=== PATIENT | male | born 1995 | race Caucasian/White ===

== ENCOUNTER 2019-01-16 21:18 | Emergency (ER) | payer BC ==
[~2019-01-16] VITALS: Ht 170.2 cm; Wt 70.0 kg
[2019-01-16] MEDS ORDERED: KETOROLAC TROMETHAMINE 60 MG/2 ML VIAL IM ONE (22:45)
[2019-01-17 01:02] VITALS: BP 130/80
== END 2019-01-17 01:05 | disposition home or self-care (01) ==
LOC: EMS 21:19
DX: S43.101A Unspecified dislocation of right acromioclavicular joint, initial encounter (principal); W18.39XA Other fall on same level, initial encounter; Y93.66 Activity, soccer; Y92.322 Soccer field as the place of occurrence of the external cause; Y99.8 Other external cause status
CPT/HCPCS: 73030; 96372; 99283; J1885